=== PATIENT | male | born 1940 | race African-American/Black ===

== ENCOUNTER 2019-03-30 11:37 | Emergency (ER) | payer SELFPAY ==
[~2019-03-30] VITALS: Ht 172.7 cm; Wt 52.2 kg
[2019-03-30] MEDS ORDERED: SODIUM CHLORIDE 0.9% 500 ML IV ONE (12:03)
[2019-03-30] MEDS ORDERED: SODIUM CHLORIDE 0.9% 1,000 ML IV ONE ×2 (12:03→12:21)
[2019-03-30] MEDS ORDERED: SODIUM CHLORIDE 0.9% 500 ML IVB ONE (12:21)
[2019-03-30 13:27] LABS: Basophils # (auto) 0 uL; Eosinophils # (auto) 0 uL; Eosinophils % (auto) 0.1 % (0.0-7.0); Hematocrit 23.4 % (41.0-53.0); Red Blood Cells 2.41 10^6/uL (4.5-5.90)
[2019-03-30 13:29] LABS: Basophils % (auto) 1.1 % (0.0-2.0); Hemoglobin 7.2 g/dL (13.5-17.5); Lymphocytes # (auto) 1.2 uL; Lymphocytes % (auto) 26.9 % (10.0-50.0); Mean Corpuscular Hgb Conc. 30.9 g/dL (32.0-36.0); Mean Corpuscular Volume 97.2 fL (80.0-100.0); Monocytes # (auto) 0.4 uL; Monocytes % (auto) 9.7 % (0.0-12.0); Neutrophils # (auto) 2.7 uL; Neutrophils % (auto) 62.2 % (37.0-80.0); Nucleated Red Blood Cells % 1.1 %; Platelet Count (auto) 168 10^3/uL (140-450); White Blood Cell 4.3 10^3/uL (4.4-10.8)
[2019-03-30 13:46] LABS: Albumin 2.3 g/dL (3.4-5.0); Calcium 6.5 mg/dL (8.5-10.1); Potassium 3.2 mmol/L (3.5-5.1)
[2019-03-30 14:02] LABS: BUN/Creatinine Ratio 22.7; Bilirubin, Total 0.3 mg/dL (0.2-1.0)
[2019-03-30] MEDS ORDERED: IOHEXOL 300 MG/ML 100ML BOTTLE IJ ONE (14:09)
[2019-03-30] MEDS ORDERED: POTASSIUM EFFERVESENT TAB 25 MEQ PO ONE (16:00)
[2019-03-30] MEDS ORDERED: CALCIUM CHL 100MG/ML 1,000 MG in D5W 5% 100 ML IV ONE (16:00)
[2019-03-30 16:28] LABS: INR 1.42 (0.9-1.15); Partial Thromboplastin Time 39.7 sec (23.64-32.05)
[2019-03-30 17:25] VITALS: BP 114/66
== END 2019-03-30 17:46 | disposition short-term general hospital (02) ==
LOC: EDBD 11:37 → ER 11:37
DX: I60.9 Nontraumatic subarachnoid hemorrhage, unspecified (principal); E87.6 Hypokalemia; E83.51 Hypocalcemia; D64.9 Anemia, unspecified; J32.0 Chronic maxillary sinusitis
CPT/HCPCS: 36415; 70450; 71045; 71260; 74177; 80053; 83735; 84443; 84484; 85025; 85610; 85730; 93005; 96360; 96361; 99285; Q9967; J7060